=== PATIENT | male | born 1980 | race Caucasian/White ===

== ENCOUNTER → 2021-05-28 12:09 | Outpatient (CLI) | payer SELFPAY ==
[2021-05-28 13:51] LABS: T4 Free Direct 0.91 ng/dL (0.76-1.46); Thyroid Stim Hormone (TSH) 0.75 uIU/mL (0.358-3.74)
[2021-05-30 13:31] LABS: Thyroid Peroxidase AB 8 IU/mL (0-34)
== END ==
PROVIDERS: PCP Family Medicine; Referring Provider Nurse Practitioner Adult Health; Visit Provider Nurse Practitioner Adult Health
DX: F41.9 Anxiety disorder, unspecified (principal)
CPT/HCPCS: 36415; 84439; 84443; 86376